=== PATIENT | female | born 1960 | race Caucasian/White ===

== ENCOUNTER → 2020-12-03 16:25 | Outpatient (BNVA) | payer SELFPAY | PROVIDERS: Family Provider Nurse Practitioner Family; PCP Nurse Practitioner Family; Visit Provider Nurse Practitioner Family | DX: N30.00 Acute cystitis without hematuria (principal) | CPT/HCPCS: 81000; 87086 ==

== ENCOUNTER 2022-05-23 06:00 | Outpatient (RCR) | payer BC, SELFPAY | END 2022-06-16 23:59 | disposition home or self-care (01) | LOC: MOT 06:00 | PROVIDERS: Family Provider Nurse Practitioner Family; PCP Nurse Practitioner Family; Visit Provider Orthopaedic Surgery | DX: M79.645 Pain in left finger(s) (principal) | CPT/HCPCS: 97018; 97110; 97140; 97166 ==

== ENCOUNTER 2022-06-11 11:26 | Emergency (ER) | payer BC, SELFPAY ==
[2022-06-11 11:28] VITALS: BP 167/87; PULSE 87; RESP 16; TEMP 36.7; O2SAT 97; BMI 26.6
--- NOTE | 2022-06-11 12:06 | ED_ITS ---
HPI - General Adult General: Chief complaint: General Medical Stated complaint: CONSTIPATION RECENT GB SURGERY Time Seen by Provider: 06/11/22 11:34 History of Present Illness: 61-year-old female 4 days status post cholecystectomy presenting to the emergency department constipation by EMS. States she has not been able to have a bowel movement for the last 4 days postoperatively in the setting of taking her home narcotic pain medication. She states she took 2 Dulcolax laxative yesterday afternoon and had no increase in bowel movement. She took additional 2 this morning. Since arriving to the emergency department she has had copious diarrhea and feels relief of her constipation. She states that she has postop pain over the areas of the incisions although there has been no leakage, glue is still in place. She states that she was vacuuming postop day 1 even though she knew she was not supposed to be ago she does not notice any increase in pain from the vacuuming. The pain increase has been progressive associated with her inability to defecate. She has felt some nausea without emesis, hematochezia, hematemesis. Denies fevers. [facility] ED PFSH: Social History Smoking and tobacco status: current every day smoker Physical Exam Const: COMMON NORMALS: no acute distress and average body habitus HENMT: COMMON NORMALS: normocephalic and atraumatic HEAD & SCALP: normocephalic and atraumatic OTHER: Moist mucous membranes Eye: COMMON NORMALS: Equal, round and reactive pupils present, EOMs intact bilaterally and normal visual tony by confrontation PUPIL: Yes Equal, round and reactive pupils present Neck/C-Spine: COMMON NORMALS: full ROM and no meningeal signs Resp: COMMON NORMALS: normal respiratory effort and No retractions Cardio: COMMON NORMALS: regular rate RATE: regular rate GI: COMMON NORMALS: Normal to inspection, nondistended, normoactive bowel sounds present, Soft to palpation and non-tender (Mild tenderness without rebound, nonperitoneal, nonrigid) INSPECTION: Yes normal to inspection and Yes abdominal wall ecchymosis (Postsurgical ecchymoses around surgical sites with glue in place ) PALPATION: Yes Soft to palpation, No Firmness to palpation present (GI), Yes Tenderness to palpation present (GI), No Guarding due to palpation present (GI) and No Rigid due to palpation OTHER: Postoperative abdomen with glue in place over surgical sites without drainage, erythema, or dehiscence. Slight tenderness to palpation without rebound over the surgical area without tenderness in other areas of the abdomen, no CVA tenderness. : COMMON NORMALS: Yes no CVA tenderness BLADDER/KIDNEY EXAM: Yes no CVA tenderness Back/Pelvis: COMMON NORMALS: no CVA tenderness Extremity: COMMON NORMALS: normal to inspection Neuro: MENINGEAL SIGNS: Yes no meningeal signs Psych: COMMON NORMALS: mental status grossly normal and Normal thought process present THOUGHT PROCESS: Normal thought process present Course Vital Signs: Vital signs: Vital Signs Temperature 98.1 F 06/11/22 11:28 Pulse Rate 87 06/11/22 11:28 Respiratory Rate 16 06/11/22 11:28 Blood Pressure 167/87 06/11/22 11:28 Pulse Oximetry 97 06/11/22 11:28 Oxygen Delivery Me thod 06/11/22 11:28 MDM - General Adult Medical Decision Making 61-year-old female postoperative constipation in the setting of narcotic pain medication. Vitals nonactionable. Diagnoses considered include postoperative dehiscence, postoperative infection, bowel rupture, constipation, new abdominal pathology including concomitant appendicitis or diverticulitis, referred pain, others. Given examination the patient without signs of infection, afebrile, not ta chycardic, able to have copious bowel movements in the emergency department, will discharge with counseling on use of laxatives to prevent constipation. Advised to return to the emergency department if her pain recurs despite having regular bowel movements and the consistency of soft serve ice cream. 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 Advise she can also slat pickler MiraLAX at the grocery store for additional laxative support although the Dulcolax seems to be adequate at this point time. Discharge Plan Discharge Clinical Impression: Constipation, Post-operative pain Condition: Stable Prescriptions: No Action No Known Home Medications ciprofloxacin HCl [Cipro] 250 mg tablet 250 mg PO BID 7 Days Qty: 14 0RF Discharge Orders: Discharge ED (Routine); Ordered 06/11/22 Ordered By: Al Parikh Referrals: Mayra Gomez, DONTAE [Primary Care Provider] - Discharge Diet: Advance as tolerated Discharge Activity: Limit activity as instructed Patient Instructions: Constipation - Adult Activity Restrictions/Additional Instructions: Return for increasing pain or return of pain despite adequate bowel movements at the desired consistency. Similarly pay tension to fevers, tachycardia, chills, inability keep food down. The signs are important and should prompt immediate return to the emergency department by ambulance or POV if able. Coding Level of Care Code ED Shellfish Sorter for Jodie Hernández
[2022-06-11 12:36] VITALS: BP 159/87; PULSE 77; RESP 16; O2SAT 98
== END 2022-06-11 12:37 | disposition home or self-care (01) ==
PROVIDERS: Emergency Provider General Practice; PCP Nurse Practitioner Family
DX: K59.00 Constipation, unspecified (principal); G89.18 Other acute postprocedural pain; F17.210 Nicotine dependence, cigarettes, uncomplicated
CPT/HCPCS: 99282

== ENCOUNTER 2022-06-17 06:00 | Outpatient (RCR) | payer BC, SELFPAY | END 2022-07-16 23:59 | disposition home or self-care (01) | LOC: MOT 06:00 | PROVIDERS: Family Provider Nurse Practitioner Family; PCP Nurse Practitioner Family; Visit Provider Orthopaedic Surgery | DX: M79.645 Pain in left finger(s) (principal) | CPT/HCPCS: 97018; 97022; 97110; 97140 ==

== ENCOUNTER 2022-07-07 08:19 | Outpatient (CLI) | payer BC, SELFPAY ==
--- NOTE | 2022-07-07 08:35 | FL_ITS ---
WS: [id number] BARIUM ENEMA TECHNICAL: Single contrast barium enema FLUOROSCOPY TIME: 5min [id number] # of spot films: CLINICAL INFORMATION: INCOMPLETE COLONOSCOPY FINDINGS: Tortuous sigmoid colon. Rapid filling of the sigmoid colon without evidence of obstruction or stricture. Sigmoid diverticulosis. No evidence of high-grade stricture. Normal filling of the sple valerie and hepatic flexures. Tortuous splenic flexure. Cholecystectomy clips. Contrast extends to the ce cum with normal visualized cecum and ileocecal valve. A few diverticuli in the transverse colon and a scending RIGHT colon. Moderate to advanced spondylitic changes lower lumbar spine. Moderate degenerative arthritis both hip s with hypertrophic changes. Pelvic phleboliths. FL/FL barium enema [id number] IMPRESSION: 1. Tortuous sigmoid colon with sigmoid diverticulosis. A few scattered diverti culi in the remainder of the colon. 2. Tortuous splenic flexure. 3. Normal hepatic flexure with normal filling of the cecum. 4. No other suspicious findings.
== END 2022-07-07 08:20 | disposition home or self-care (01) ==
LOC: RAD 08:24
PROVIDERS: PCP Family Medicine; Visit Provider Surgery Vascular Surgery
DX: K57.30 Diverticulosis of large intestine without perforation or abscess without bleeding (principal); Z53.9 Procedure and treatment not carried out, unspecified reason
CPT/HCPCS: 74270

== ENCOUNTER 2025-01-09 11:48 | Emergency (ER) | payer BC, SELFPAY ==
--- OUTSIDE RECORDS SUMMARY | 2025-01-09 11:56 | XMS_ITS | Clinical Summary ---
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 Active acetaminophen (TYLENOL) 500 mg tablet Take 1,000 mg by mouth every 6 hours as needed. Active gabapentin (NEURONTIN) 300 mg capsule Take 1 Capsule (300 mg) by mouth daily at bedtime. 30 Capsule 1 06/11/2015 Active Active Problems No known active problems Family History Medical History Relation Name Comments Healthy Brother Bipolar Disorder Daughter 1 Healthy Daughter 2 Healthy Daughter 3 Other Father MVA Other Mother fibromyalgia Hypertension Sister 1 Thyroid Disease Sister 1 Healthy Sister 2 Relation Name Status Comments Brother Alive Daughter 1 Alive Daughter 2 Alive Daughter 3 Alive Father Mother Alive Sister 1 Alive Sister 2 Alive Social History Tobacco Use Types Packs/Day Years Used Date Smoking Tobacco: Every Day Cigarettes Smokeless Tobacco: Never Alcohol Use Standard Drinks/Week Comments Yes 8 (1 standard drink = 0.6 oz pur e alcohol) Comments No Sex and Gender Information Value Date Recorded Sex Assigned at Not on file Legal Sex Female 4:37 PM CDT Gender Identity Not on file Sexual Orientation Not on file Last Filed Vital Signs Vital Sign Reading Time Taken Comments Blood Pressure 142/86 06/11/2015 2:56 PM CDT Pulse 76 06/11/2015 2:56 PM CDT Temperature 36.6 C (97.8 F) 06/11/2015 2:56 PM CDT Respiratory Rate 18 06/05/2015 8:16 PM CDT Oxygen Saturation 96% 06/11/2015 2:56 PM CDT Inhaled Oxygen Concentration - - Weight 72.5 kg (159 lb 12.8 oz) 06/11/2015 2:56 PM CDT Height 162.6 cm (5' 4 ) 06/11/2015 2:56 PM CDT Body Mass Index 27.43 06/11/2015 2:56 PM CDT Plan of Treatment Health Maintenance Due Date Last Done Comments DTAP/TDAP/TD VACCINES (1 - Tdap) 1981 HPV/Cotest (21-29) 10/30/1983 CERVICAL CANCER SCREENING 1992 HPV/Cotest (30-65) 1992 PAP SMEAR 1992 BREAST CANCER SCREENING 2002 COLORECTAL SCREENING 10/30/2007 Colorectal Cancer Screening 10/30/2007 FIT-DNA Q 3 years 10/30/2007 FIT/FOBT Q 1 year 10/30/2007 Flex Sig/CT Colonography Q 5 years 10/30/2007 ZOSTER VACCINE (1 of 2) 2012 INFLUENZA VACCINE (#1) 2024 RSV VACCINE (60+ or ) (1 - 1-dose 75+ series) 2037
[2025-01-09 12:08] VITALS: BP 201/87; PULSE 65; RESP 18; TEMP 36.7; O2SAT 98
--- NOTE | 2025-01-09 12:53 | CT_ITS ---
WS: [id number] CT ABDOMEN PELVIS TECHNIQUE: Noncontrast CT of the abdomen and pelvis with coronal and sagittal reformatted images. CLINICAL INFORMATION: R sided back pain COMPARISON: None. DLP: 519.[address] scans at [facility] use at least one of these dose optimization techniques: automated exposure control; mA and/or kV adjustment per patient size (includes targeted exams where dose is matched to clinical indication); or iterative reconstruction. FINDINGS: Numerous pelvic phleboliths. No obstructing RIGHT renal or ureteral calculi. No hydronephrosis in the RIGHT kidney. No obstructing LEFT renal or ureteral calculi. Cholecystectomy clips. Urine distended bladder. Normal noncontrast liver and spleen. Splenic granulomas. Adrenal glands are normal. Fatty atrophy of the pancreas. Lung bases are well aerated. Normal caliber abdominal aorta. Mild aortic calcification. Adrenal glands are normal. Small LEFT renal cyst. Sigmoid diverticulosis. Transverse colon constipation. Normal appendix in the RIGHT lower quadrant. CT/CT kidney stone [id number] IMPRESSION: 1. No obstructing renal or ureteral calculi. 2. No hydronephrosis. 3. Normal appendix. 4. Urine distended bladder. 5. Sigmoid diverticulosis. No evidence of acute diverticulitis. 6. No other acute findings.
--- NOTE | 2025-01-09 12:54 | ED_ITS ---
HPI - Female Genitourinary 2 General: Chief complaint: Urogenital-Female Stated complaint: Rside lower back pain Groin area Burning Time Seen by Provider: 01/09/25 12:46 Source: patient Mode of arrival: ambulatory Limitations: no limitations History of Present Illness: Patient is a 64-year-old female presents to the ED today with a complaint of right sided back pain as well as irritation to her external genitalia region. Patient states she has had symptoms about a week. She initially thought she was developing a urinary tract infection and was seen by her PCP, Rahel Ring. She states she had a UA performed and was placed on antibiotics. She states her culture came back normal. Patient states she has not noticed any swelling to her labia/vulva. She does not complain of itchiness. No vaginal bleeding or vaginal discharge. She states she has not been sexually active since April. She does sometimes feel pressure down there . She has had some issues previously and was placed on vaginal estrogen by gynecology in [place]. She wonders if her right sided back and abdominal pain could be related to her kidney. She has not noticed any hematuria. She does have chronic right hip pain and sits a lot for work so wonders if maybe this is more musculoskeletal back pain. MD elicited complaint: other (genital irritation, R sided back/abdominal pain) Onset (ago): day(s) Consistency: constant Vaginal discharge: none Vaginal bleeding: none Exacerbating factors: none Relieving factors: none Associated symptoms: Reports abdominal pain; Deny headache(s), nausea, syncope or vaginal discharge Sexual activity: No Patient : No Related Data Home Medications ?Medication ?Instructions ?Recorded ?Confirmed estradiol 0.01% (0.1 mg/gram) 1 g vaginal .[id number]@HS 01/09/25 01/09/25 vaginal cream levothyroxine 25 mcg tablet 25 mcg PO QAM 01/09/25 metoprolol tartrate 25 mg tablet 25 mg PO BID 01/09/25 01/09/25 omeprazole 20 mg capsule,delayed 20 mg PO DAILY 01/09/25 release terbinafine HCl 250 mg tablet 250 mg PO DAILY 01/09/25 01/09/25 Previous Rx's ?Medication ?Instructions ?Recorded methocarbamol 500 mg tablet 1,000 mg (2 x 500 mg) PO Q 8H #30 01/09/25 tabs Allergies Allergy/AdvReac Type Severity Reaction Status Date / Time No Known Allergies Allergy Verified 12/03/20 16:13 Review of Systems 2 Const: Denies: fever(s), chills, body aches, fatigue or malaise Eyes: Denies: change in vision or blurry vision Card: Denies: chest pain, palpitations, irregular heart rhythm, lightheadedness, syncope or dyspnea on exertion Resp: Denies: dyspnea, productive cough or pain on inspiration GI: Reports: abdominal pain; Denies: nausea, vomiting, heartburn or diarrhea : Reports: flank pain; Denies: dysuria, hematuria or vaginal discharge Musc: Reports: back pain; Denies: neck pain, extremity pain, extremity swelling, joint pain or joint swelling Skin/Breast: Reports: other (reporting genitalia irritation/burning); Denies: rash Neuro: Denies: headache(s), numbness in extremities, weakness in extremities, sensory changes or dizziness PFSH ED 2 PFSH: Social History Smoking and tobacco/nicotine status: current every day tobacco/nicotine user Physical Exam 2 Const: COMMON NORMALS: no acute distress, average body habitus, patient oriented x3, no limitations, healthy appearing, alert and well nourished G ENERAL APPEARANCE: cooperative ORIENTATION/CONSCIOUSNESS: Yes awake, Yes oriented to person, Yes oriented to place and Yes oriented to time HENMT: COMMON NORMALS: normocephalic and atraumatic HEAD & SCALP: normal to inspection, normocephalic and atraumatic Neck/C-Spine: COMMON NORMALS: full ROM, no lymphadenopathy, supple and no meningeal signs Chest: COMMONS NORMALS: normal inspection of the chest Resp: COMMON NORMALS: normal respiratory effort and clear to auscultation bilaterally AUSCULTATION: clear to auscultation bilaterally Cardio: COMMON NORMALS: regular rate and regular rhythm RATE: regular rate RHYTHM: regular rhythm GI: COMMON NORMALS: Normal to inspection, nondistended, normoactive bowel sounds present, Soft to palpation, No hepatosplenomegaly present and no masses INSPECTION: Yes normal to inspection AUSCULTATION: Yes normoactive bowel sounds PALPATION: Yes Soft to palpation, No Tenderness to palpation present (GI), No Guarding due to palpation present (GI), No Rigid due to palpation and Yes No hepatosplenomegaly present : BLADDER/KIDNEY EXAM: Yes CVA tenderness on the right (below CVA) OTHER: external genitalia exam performed and I do not see any obvious irritation present; there is no edema or discharge; she does appear to have a cystocele Back/Pelvis: COMMON NORMALS: thoracic and lumbar spine normal to inspection, no thoracic nor lumbar tenderness, thoraco-lumbar ROM normal and straight leg raise negative bilaterally GENERAL BACK: Yes CVA tenderness PELVIS: Yes buttocks normal SACROILIAC JOINTS: Yes SI joints normal SACRUM: no tenderness COCCYX: no tenderness BACK IMAGE (FEMALE): 1. TTP Extremity: COMMON NORMALS: normal to inspection and full ROM GENERAL: Yes normal exam except as noted Neuro: COMMON NORMALS: patient oriented x3, moves all extremities, no focal motor deficits, no sensory deficits noted and gait normal S ENSORIUM/ORIENTATION: Yes alert, Yes oriented to person, Yes oriented to place and Yes oriented to time MENINGEAL SIGNS: Yes no meningeal signs Skin: COMMON NORMALS: no rashes or lesions noted GENERAL SKIN EXAM: no rashes or lesions noted Course 2 Vital Signs: Vital signs: Vital Signs Temperature 98.1 F 01/09/25 12:08 Pulse Rate 65 01/09/25 14:15 Respiratory Rate 18 01/09/25 12:08 Blood Pressure 171/113 01/09/25 14:15 Pulse Oximetry 96 01/09/25 14:15 Oxygen Delivery Me thod Room Air 01/09/25 12:08 MDM - Female Medical Decision Making Patient's blood work overall is unremarkable. Her UA is clear. CT scan showing no acute findings. She does have a urine distended bladder but feels like she needs to urinate. She has not having any issues urinating at home and feels like she completely empties her bladder. Back pain could be musculoskeletal. She does want referral to [facility] for evaluation of the genital irritation and burning and possible cystocele so this will be placed. Medical Records I reviewed the patient's medical records. Lab Data I reviewed the patient's lab results. 01/09/25 13:17 01/09/25 13:17 Radiology Impressions Abdomen/Pelvis CT 01/09/25 12:53 IMPRESSION: 1. No obstructing renal or ureteral calculi. 2. No hydronephrosis. 3. Normal appendix. 4. Urine distended bladder. 5. Sigmoid diverticulosis. No evidence of acute diverticulitis. 6. No other acute findings. Laboratory Results WBC 7.61 10^3/uL (3.29-11.43) 01/09/25 13:17 RBC 4.83 10^6/uL (3.85-5.65) 01/09/25 13:17 Hgb 15.80 g/dL (11.27-16.99) 01/09/25 13:17 Hct 46.0 % (36-47) 01/09/25 13:17 MCV 95.2 fl (85-98) 01/09/25 13:17 MCH 32.7 pg (27-33) 01/09/25 13:17 MCHC 34.3 g/dL (30-55) 01/09/25 13:17 RDW 12.9 % (12.1-15.1) 01/09/25 13:17 Plt Count 252 10^3/cmm (157-399) 01/09/25 13:17 MPV 9.6 fL (7.4-10.4) 01/09/25 13:17 Neut % (Auto) 52.0 % 01/09/25 13:17 Lymph % (Auto) 34.0 % 01/09/25 13:17 [place] % (Auto) 8.5 % 01/09/25 13:17 Eos % (Auto) 3.9 % 01/09/25 13:17 Baso % (Auto) 1.3 % 01/09/25 13:17 Neut # (Auto) 3.95 10^3/uL (1.8-7.7) 01/09/25 13:17 Lymph # (Auto) 2.6 10^3/uL (0.8-4.8) 01/09/25 13:17 [place] # (Auto) 0.7 10^3/uL (0.2-0.9) 01/09/25 13:17 Eos # (Auto) 0.3 10^3/uL (0.0-0.8) 01/09/25 13:17 Baso # (Auto) 0.1 10^3/uL (0.0-0.1) 01/09/25 13:17 Nucleated RBC % (auto) 0 % 01/09/25 13:17 Nucleated RBCs # 0.0 /100WBC 01/09/25 13:17 Sodium 140 mmol/L (136-145) 01/09/25 13:17 Potassium 4.2 mmol/L (3.5-5.1) 01/09/25 13:17 Chloride 105 mmol/L (98-107) 01/09/25 13:17 Carbon Dioxide 23 mmol/L (22-29) 01/09/25 13:17 Anion Gap 16.2 (5-19) 01/09/25 13:17 BUN 12 mg/dL (8-23) 01/09/25 13:17 Creatinine 0.4 mg/dL (0.5-0.9) L 01/09/25 13:17 GFR Calculation 161.7 mL/min (90-130) H 01/09/25 13:17 Glucose 90 mg/dL (65-115) 01/09/25 13:17 Calculated Osmolality 289 mOsm/kg (285-295) 01/09/25 13:17 Calcium 9.5 mg/dL (8.5-10.5) 01/09/25 13:17 Total Bilirubin 0.4 mg/dL (0.15-1.2) 01/09/25 13:17 AST 20 U/L (0-32) 01/09/25 13:17 ALT 17 U/L (0-33) 01/09/25 13:17 Alkaline Phosphatase 126 U/L (35-105) H 01/09/25 13:17 Total Protein 7.0 g/dL (6.6-8.7) 01/09/25 13:17 Albumin 4.4 g/dL (3.5-5.2) 01/09/25 13:17 Globulin 2.6 g/dL (1.3-4.6) 01/09/25 13:17 Urine Color Yellow (Yellow) 01/09/25 12:40 Urine Appearance Clear (CLEAR) 01/09/25 12:40 Urine pH 6.5 (5-7) 01/09/25 12:40 Ur Specific Collins 1.005 (1.005-1.030) 01/09/25 12:40 Urine Protein Negative (Negative) 01/09/25 12:40 Urine Glucose (UA) Negative (Normal) 01/09/25 12:40 Urine Ketones Negative (Negative) 01/09/25 12:40 Urine Blood Negative (Negative) 01/09/25 12:40 Urine Nitrate Negative (Negative) 01/09/25 12:40 Urine Bilirubin Negative (Negative) 01/09/25 12:40 Urine Urobilinogen 0.2 mg/dL (Negative) 01/09/25 12:40 Ur Leukocyte Esterase Negative (Negative) 01/09/25 12:40 Urine RBC 0-2 /hpf (0-2) 01/09/25 12:40 Urine WBC 0-5 /hpf (0-5) 01/09/25 12:40 Ur Squamous Epith Cells 0-5 /hpf (0-5) 01/09/25 12:40 Amorphous Sediment Not Reportable 01/09/25 12:40 Urine Bacteria None seen /hpf (NONE) 01/09/25 12:40 Hyaline Casts 0-4 /lpf H 01/09/25 12:40 All radiology interpretation(s) finalized by discharge Discharge Plan Discharge Patient Disposition: Home Clinical Impression: Acute right-sided back pain Qualifiers: Back pain location: thoracic back pain Qualified Code(s): M54.6 - Pain in thoracic spine Condition: Stable Prescriptions: New methocarbamol 500 mg tablet 1,000 mg PO Q8H Qty: 30 0RF No Action levothyroxine 25 mcg tablet 25 mcg PO QAM terbinafine HCl 250 mg tablet 250 mg PO DAILY omeprazole 20 mg capsule,delayed release(DR/EC) 20 mg PO DAILY estradiol 0.01 % (0.1 mg/gram) cream 1 g VAGINAL .[id number]@HS metoprolol tartrate 25 mg tablet 25 mg PO BID Discharge Orders: Discharge ED (Routine); Ordered 01/09/25 Ordered By: Yamilet Alvarado Referrals: Rahel Ring FNP [Primary Care Provider, Nurse Practitioner] Patient Instructions: Patient Portal & Karlos Instructions Activity Restrictions/Additional Instructions: I have placed a case management referral to get you set [facility] for further evaluation of genital irritation/discomfort and to evaluate you for any type of pelvic organ prolapse. You may continue to follow-up with your primary care provider or wait for your referral with Dr. Fernández for evaluation of your back pain and hip pain. Print Language: Swedish Coding Level of Care Code ED Director Of Automation for Jodie Hernández
[2025-01-09 13:01] LABS: Glucose Urine UA Negative (Normal); Nitrate Urine Negative (Negative); Specific Gravity, Urine 1.005 (1.005-1.030)
[2025-01-09 13:03] LABS: Add Urine Microscopic? YES
[2025-01-09 13:24] LABS: Hematocrit 46.0 % (36-47); Hemoglobin 15.80 g/dL (11.27-16.99); Mean Corpuscular HGB Conc 34.3 g/dL (30-55); Mean Corpuscular Hemoglobin 32.7 pg (27-33); Mean Corpuscular Volume 95.2 fl (85-98); Nucleated Red Blood Cells % 0 %; Platelet Count 252 10^3/cmm (157-399); Red Blood Count 4.83 10^6/uL (3.85-5.65); White Blood Count 7.61 10^3/uL (3.29-11.43)
[2025-01-09 13:44] LABS: Alanine Aminotransferase 17 U/L (0-33); Albumin Level 4.4 g/dL (3.5-5.2); Alkaline Phosphatase 126 U/L (35-105); Anion Gap 16.2 (5-19); Aspartate Amino Transferase 20 U/L (0-32); Blood Urea Nitrogen 12 mg/dL (8-23); Calcium 9.5 mg/dL (8.5-10.5); Carbon Dioxide 23 mmol/L (22-29); Chloride 105 mmol/L (98-107); Creatinine Clr Calc Pharmacy 141.5487; Globulin 2.6 g/dL (1.3-4.6); Glucose 90 mg/dL (65-115); Osmolality Calculated 289 mOsm/kg (285-295); Potassium 4.2 mmol/L (3.5-5.1); Sodium 140 mmol/L (136-145); Total Protein 7.0 g/dL (6.6-8.7)
[2025-01-09 14:15] VITALS: BP 171/113; PULSE 65; O2SAT 96
--- NOTE | 2025-01-12 07:43 | DCPLANNER ---
messaged [facility] for er f/u
== END 2025-01-09 14:16 | disposition home or self-care (01) ==
PROVIDERS: Emergency Provider Physician Assistant; PCP Nurse Practitioner Family
DX: M54.6 Pain in thoracic spine (principal); Z72.0 Tobacco use
CPT/HCPCS: 36415; 74176; 80053; 81001; 85025; 99284

== ENCOUNTER → 2025-03-05 12:49 | Outpatient (BNVA) | payer BC, SELFPAY | PROVIDERS: PCP Nurse Practitioner Family; Visit Provider Orthopaedic Surgery | DX: M43.16 Spondylolisthesis, lumbar region (principal) | CPT/HCPCS: 72110 ==

== ENCOUNTER 2025-03-11 08:23 | Outpatient (CLI) | payer BC, SELFPAY ==
--- NOTE | 2025-03-11 08:45 | MR_ITS ---
WS: [id number] MRI LUMBAR SPINE NONCONTRAST TECHNIQUE: Sagittal T1, T2 and STIR imaging. Axial T1 and T2 imaging. CLINICAL INFORMATION: lumbar pain COMPARISON: None. FINDINGS: Mild lumbar curve. No acute compression. Slight anterolisthesis L4 on L5. L1-L2: Mild facet arthropathy. L2-L3: Mild annular bulging. Moderate facet arthropathy. Spinal canal and foramen are patent. L3-L4: Mild central canal stenosis. Impingement LEFT subarticular recess and traversing LEFT L4 nerve root. Mild LEFT foraminal narrowing. RIGHT foramen is patent. Moderate facet arthropathy. L4-L5: Slight anterolisthesis. Mild disc bulging with moderate central canal stenosis. Impingement of traversing L5 nerve roots bilaterally. Advanced facet arthropathy ligamentum flavum hypertrophy. Small facet effusions. Mild LEFT foraminal narrowing. L5-S1: Mild annular bulging. Encroachment on the traversing S1 nerve roots. Advanced arthropathy. Foramen are patent. Visualized pelvic bony structures: Normal. Paravertebral soft tissues: Normal. Small LEFT renal cyst measuring 12 mm MR/MR lumbar spine wo con* [id number] IMPRESSION: 1. Mild central canal stenosis L3-4 with impingement LEFT subarticular recess. Moderate central canal stenosis L4-5 impinges the traversing L5 nerve roots bi laterally. 2. Advanced facet arthropathy L4-L5 and L5-S1. 3. Small LEFT foraminal protrusion L3-4 with mild LEFT foraminal narrowing.
== END 2025-03-11 08:24 | disposition home or self-care (01) ==
PROVIDERS: PCP Nurse Practitioner Family; Visit Provider Orthopaedic Surgery
DX: M47.816 Spondylosis without myelopathy or radiculopathy, lumbar region (principal); M47.817 Spondylosis without myelopathy or radiculopathy, lumbosacral region; M51.369 Other intervertebral disc degeneration, lumbar region without mention of lumbar back pain or lower extremity pain; M51.379 Other intervertebral disc degeneration, lumbosacral region without mention of lumbar back pain or lower extremity pain; M48.061 Spinal stenosis, lumbar region without neurogenic claudication; M25.80 Other specified joint disorders, unspecified joint
CPT/HCPCS: 72148

== ENCOUNTER → 2025-03-17 16:00 | Outpatient (BNVA) | payer BC, SELFPAY | PROVIDERS: PCP Nurse Practitioner Family; Visit Provider Orthopaedic Surgery | DX: Z01.818 Encounter for other preprocedural examination (principal) | CPT/HCPCS: 36415; 80053; 81001; 85025 ==